=== PATIENT | male | born 1995 | race Caucasian/White ===

== ENCOUNTER → 2017-07-21 | Outpatient (CLI) | payer BC | LOC: COL.RAD 10:33 | DX: S43.432A Superior glenoid labrum lesion of left shoulder, initial encounter (principal); M24.112 Other articular cartilage disorders, left shoulder | CPT/HCPCS: A9585; Q9967 ==

== ENCOUNTER → 2019-03-03 | Outpatient (CLI) | payer BC | LOC: ZCOL.LAB 17:07 | DX: Z11.3 Encounter for screening for infections with a predominantly sexual mode of transmission (principal) ==